=== PATIENT | female | born 1985 | race Caucasian/White ===

== ENCOUNTER 2018-12-24 02:53 | Inpatient (IN) | payer BC ==
[2018-12-24] MEDS ORDERED: Ondansetron 4 MG/2 ML SDV IVPUSH PRN (04:14)
[2018-12-24] MEDS ORDERED: Nalbuphine 20 MG/ML 1 ML Syringe IVPUSH PRN (04:14)
[2018-12-24] MEDS ORDERED: Sodium Chloride 0.9% 10 ML Syringe FLUSH PRN (04:14)
--- NOTE | 2018-12-24 04:24 | PCM.LDHP ---
L&D History of Present Illness - General Date of Service: 12/24/18 Admit Problem/Dx: Patient Status Order with Admit Dx/Problem 12/24/18 03:31 Patient Status [ADT] Routine Admission Diagnosis/Problem Admission Diagnosis/Problem - History of Present Illness Introduction:: 33 year old female at 39w6d by LMP consistent with 20 week ultrasound here in active labor. PNC has been with myself without complications and with regular visits starting at 12 weeks. Contractions started last evening and got much stronger about midnight. Upon arrival is 5 cm and has changed from 2 cm in clinic Tuesday. Improves with: Reports: None Worsens with: Reports: None Associated Symptoms: Reports: N - Related Data Allergies/Adverse Reactions: Allergies Allergy/AdvReac Type Severity Reaction Status Date / Time cephalexin Allergy Rash Verified 12/24/18 03:30 Past Medical History - Past Health History Medical/Surgical History: Denies Medical/Surgical History H&P Review of Systems - Review of Systems: Review Of Systems: See Below General: Reports: No Symptoms HEENT: Reports: No Symptoms Pulmonary: Reports: No Symptoms Cardiovascular: Reports: No Symptoms Gastrointestinal: Reports: No Symptoms Genitourinary: Reports: No Symptoms Musculoskeletal: Reports: No Symptoms Skin: Reports: No Symptoms Psychiatric: Reports: No Symptoms Neurological: Reports: No Symptoms Hematologic/Lymphatic: Reports: No Symptoms Immunologic: Reports: No Symptoms L&D Exam - Exam Exam: See Below - Vital Signs Weight: 75.75 kg - OB Specific Contraction Intensity: Moderate to Strong Movement: Active Heart Tones: Present Heart Rate (FHR) Variability: Moderate (6-25 bmp) Presentation: Vertex - Santos Score Santos Score Cervix Position: Anterior Santos Score Consistency: Soft Santos Score Effacement: >80% Santos Score Dilation: > 5 cm Santos Score 's Station: -2 Santos Score Total: 11 - Exam General: Alert, Oriented HEENT: PERRLA, Conjunctiva Clear, EACs Clear, EOMI, Hearing Intact, Mucosa Moist & [place], Nares Patent, Normal Nasal Septum, Posterior Pharynx Clear, TMs Clear Neck: Supple, Trachea Midline Lungs: Clear to Auscultation, Normal Respiratory Effort Cardiovascular: Regular Rate, Regular Rhythm GI/Abdominal Exam: Normal Bowel Sounds, Soft, Non-Tender, No Organomegaly, No Distention, No Abnormal Bruit, No Mass, Pelvis Stable Rectal Exam: Normal Exam, Normal Rectal Tone Genitourinary: Normal external exam, Normal bimanual exam, Normal speculum exam Back Exam: Normal Inspection, Full Range of Motion Extremities: Normal Inspection, Normal Range of Motion, Non-Tender, No Pedal Edema, Normal Capillary Refill Skin: Warm, Dry, Intact Neurological: Cranial Nerves Intact, Reflexes Equal Bilateral Psychiatric: Alert, Normal Affect, Normal Mood Problem List Initiated/Reviewed/Updated: Yes Orders Last 24hrs: Active Orders 24 hr Category Date Time Status Patient Status [ADT] Routine ADT 12/24/18 03:31 Active Activity as Tolerated [RC] PFP Care 12/24/18 04:15 Ordered Communication Order [RC] ASDIRECTED Care 12/24/18 04:15 Ordered Heart Tones [RC] ASDIRECTED Care 12/24/18 04:15 Ordered Non Stress Test [RC] PER UNIT ROUTINE Care 12/24/18 03:31 Active Non Stress Test [RC] PER UNIT ROUTINE Care 12/24/18 04:15 Ordered Notify Provider [RC] PFP Care 12/24/18 04:15 Ordered Notify Provider [RC] PRN Care 12/24/18 04:15 Ordered Peripheral IV Care [RC] . DIRECTED Care 12/24/18 04:15 Ordered Vaginal Exam [RC] PRN Care 12/24/18 03:31 Active Vital Signs [RC] PER UNIT ROUTINE Care 12/24/18 03:31 Active Vital Signs [RC] PER UNIT ROUTINE Care 12/24/18 04:15 Ordered Regular Diet [DIET] Diet 12/24/18 Breakfast Ordered CBC W/O DIFF,HEMOGRAM [HEME] Stat Lab 12/24/18 04:14 Ordered RAPID PLASMA REAGIN,RPR [CHEM] Routine Lab 12/24/18 04:15 Ordered TYPE AND SCREEN [BBK] Stat Lab 12/24/18 04:14 Ordered Lactated Ringers [Ringers, Lactated] 1,000 ml Med 12/24/18 04:15 Ordered IV ASDIRECTED Nalbuphine [Nubain] Med 12/24/18 04:14 Ordered 10 mg IVPUSH Q2H PRN Ondansetron [Zofran] Med 12/24/18 04:14 Ordered 4 mg IVPUSH Q4H PRN Oxytocin/Lactated Ringers [Pitocin in LR 10 Units/1,000 Med 12/24/18 04:15 Ordered ML] 10 unit in 1,000 ml IV .CONTINUOUS Sodium Chloride 0.9% [Saline Flush] Med 12/24/18 04:14 Ordered 10 ml FLUSH ASDIRECTED PRN Electronic Heart Tones Ext w TOCO [WOMSER] Oth 12/24/18 04:15 Ordered Routine Electronic Heart Tones Internal [WOMSER] Per Unit Ot 12/24/18 04:15 Ordered Routine Peripheral IV Insertion Adult [OM.PC] Routine Oth 12/24/18 04:15 Ordered Resuscitation Status Routine Resus Stat 12/24/18 03:30 Ordered Medication Orders Lactated Ringer's (Ringers, Lactated) 1,000 mls @ 100 mls/hr IV ASDIRECTED WILLIAM Oxytocin/Lactated Ringer's (Pitocin In Lr 10 Units/1,000 Ml) 10 unit in 1,000 mls @ 100 mls/hr IV .CONTINUOUS WILLIAM Nalbuphine HCl (Nubain) 10 mg IVPUSH Q2H PRN PRN Reason: pain Ondansetron HCl (Zofran) 4 mg IVPUSH Q4H PRN PRN Reason: Nausea/Vomiting Sodium Chloride (Saline Flush) 10 ml FLUSH ASDIRECTED PRN PRN Reason: Keep Vein Open Assessment/Plan Comment:: Term labor. AROM clear fluid. Desires epidural.
[2018-12-24] MEDS: Lactated Ringers 1,000 ML IV SCH ×5 (04:42→19:27)
[2018-12-24] MEDS ORDERED: fentaNYL 100 MCG/2 ML SDV EPIDUR PRN (07:02)
[2018-12-24] MEDS ORDERED: ePHEDrine 50 MG/ML SDV IVPUSH PRN (07:02)
[2018-12-24] MEDS ORDERED: diphenhydrAMINE 50 MG/ML SDV IVPUSH PRN (07:02)
[2018-12-24] MEDS ORDERED: fentaNYL/Bupivacaine-NS 2 MCG/ML-0.125%/PF 100 ML Bag EPIDUR SCH (07:15)
--- NOTE | 2018-12-24 07:41 | PCM.PREANE ---
Preanesthetic Assessment - Anesthesia/Transfusion/Family Hx Anesthesia History: No Prior Anesthesia Family History of Anesthesia Reaction: No Transfusion History: No Prior Transfusion(s) - Review of Systems General: No Symptoms Pulmonary: No Symptoms Cardiovascular: No Symptoms Gastrointestinal: Abdominal Pain Neurological: No Symptoms Other: Reports: None - Physical Assessment Pulse: 84 O2 Sat by Pulse Oximetry: 99 Respiratory Rate: 15 Blood Pressure: 117/62 Temperature: 36.3 C Vital Signs: Last Vital Signs Temp 37.2 C 12/24/18 04:15 Pulse 73 12/24/18 04:15 Resp 15 12/24/18 04:15 BP 135/79 12/24/18 04:15 Pulse Ox 99 12/24/18 04:15 Height: 1.68 m Weight: 75.75 kg ASA Class: 2 Mental Status: Alert & Oriented x3 Airway Class: Mallampati = 1 Dentition: Reports: Normal Dentition Thyro-Mental Finger Breadths: 3 Mouth Opening Finger Breadths: 3 ROM/Head Extension: Full Lungs: Clear to Auscultation, Normal Respiratory Effort Cardiovascular: Regular Rate, Regular Rhythm - Lab Values: Laboratory Last Values WBC 15.60 K/mm3 (3.98-10.04) H 12/24/18 04:25 RBC 4.47 M/mm3 (3.98-5.22) 12/24/18 04:25 Hgb 12.9 gm/L (11.2-15.7) 12/24/18 04:25 Hct 37.3 % (34.1-44.9) 12/24/18 04:25 MCV 83.4 fl (79.4-94.8) 12/24/18 04:25 MCH 28.9 pg (25.6-32.2) 12/24/18 04:25 MCHC 34.6 g/dl (32.2-35.5) 12/24/18 04:25 RDW Std Deviation 39.1 fL (36.4-46.3) 12/24/18 04:25 Plt Count 228 K/mm3 (182-369) 12/24/18 04:25 MPV 9.4 fl (9.4-12.3) 12/24/18 04:25 Blood Type O POSITIVE 12/24/18 04:25 Gel Antibody Screen Negative 12/24/18 04:25 - Allergies Allergies/Adverse Reactions: Allergies Allergy/AdvReac Type Severity Reaction Status Date / Time cephalexin Allergy Rash Verified 12/24/18 03:30 - Anesthesia Plan Pre-Op Medication Ordered: None - Acknowledgements Anesthesia Type Planned: Epidural Pt an Appropriate Candidate for the Planned Anesthesia: Yes Alternatives and Risks of Anesthesia Discussed w Pt/Guardian: Yes Pt/Guardian Understands and Agrees with Anesthesia Plan: Yes PreAnesthesia Questionnaire - Past Health History Medical/Surgical History: Denies Medical/Surgical History HEENT History: Reports: None 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: , Other (See Below) Other OB/BYN History: Abnormal PAP 2010 - Past Surgical History HEENT Surgical History: Reports: LASIK, Oral Surgery Other HEENT Surgeries/Procedures: [place] teeth removed age 15 - SUBSTANCE USE Smoking Status *Q: Never Smoker Second Hand Smoke Exposure: No Recreational Drug Use History: No - CURRENT (IN HOUSE) MEDS Current Meds: Current Medications Diphenhydramine HCl (Benadryl) 25 mg IVPUSH Q6H PRN PRN Reason: Itching Ephedrine Sulfate (Ephedrine Sulfate) 5 mg IVPUSH ASDIRECTED PRN PRN Reason: HYPOTENTSION Last Admin: 12/24/18 07:36 Dose: 5 mg Fentanyl (Sublimaze) 100 mcg EPIDUR Q3H PRN PRN Reason: Pain Last Admin: 12/24/18 07:29 Dose: 100 mcg Fentanyl/Bupivacaine HCl (Anuplqmf-Zmujm-Kg 2 Mcg/Ml-0.125%) 100 ml EPIDUR ASDIRECTED [facility] Last Admin: 12/24/18 07:29 Dose: 100 ml Lactated Ringer's (Ringers, Lactated) 1,000 mls @ 100 mls/hr IV ASDIRECTED [facility] Last Admin: 12/24/18 07:05 Dose: 999 mls/hr Oxytocin/Lactated Ringer's (Pitocin In Lr 10 Units/1,000 Ml) 10 unit in 1,000 mls @ 100 mls/hr IV .CONTINUOUS WILLIAM Nalbuphine HCl (Nubain) 10 mg IVPUSH Q2H PRN PRN Reason: pain Ondansetron HCl (Zofran) 4 mg IVPUSH Q4H PRN PRN Reason: Nausea/Vomiting Sodium Chloride (Saline Flush) 10 ml FLUSH ASDIRECTED PRN PRN Reason: Keep Vein Open
[2018-12-24] MEDS: Oxytocin/Lactated Ringers 10 UNIT/1,000 ML BAG IV SCH ×2 (09:19→19:39)
[2018-12-24] MEDS ORDERED: Oxytocin/Lactated Ringers 10 UNIT/1,000 ML BAG IV SCH (10:48)
[2018-12-24] MEDS ORDERED: ePHEDrine 50 MG/ML SDV ONE (14:00)
[2018-12-24] MEDS ORDERED: Lidocaine 1.5% with EPINEPHrine 1:200,000 5 ML Amp ONE (14:00)
[2018-12-24] MEDS ORDERED: Bupivacaine 0.25% 10 ML SDV ONE (14:00)
[2018-12-24] MEDS ORDERED: Methylergonovine 0.2 MG/1 ML Amp IM PRN (16:27)
--- NOTE | 2018-12-24 16:58 | PCM.SN ---
- Free Text/Narrative Note: Stage I - Patient presented in active labor. Epidural for anesthesia. Progressed nicely to complete with overall reassuring heart tones. Stage II - of viable female , APGARS 8/9 at 1602. Weight pending. Head delivered in controlled manner over intact perineum, body and shoulders followed atraumatically. Cord clamped and cut by FOB. Stage III - Placenta delivered spontaneous and intact. 3VC. Immediate hemorrhage with rapid loss of about 600mL. Bladder emptied with springer and methergine given in addition to pitocin. Bleeding slowed. Uterus then firm. EBL 1000. Small left labial laceration repaired with 4-0 vicryl
[2018-12-24] MEDS ORDERED: Ondansetron 4 MG/2 ML SDV ONE (19:17)
[2018-12-24] MEDS: Ibuprofen 600 MG Tab PO PRN (20:48)
[2018-12-25] MEDS: Ibuprofen 600 MG Tab PO PRN ×2 (02:28→19:37)
--- NOTE | 2018-12-25 07:42 | PCM.PNPP ---
- General Info Date of Service: 12/25/18 Functional Status: Reports: Pain Controlled (with exception of headache) - Review of Systems General: Reports: No Symptoms HEENT: Reports: Headaches Pulmonary: Reports: No Symptoms Cardiovascular: Reports: No Symptoms Gastrointestinal: Reports: No Symptoms Genitourinary: Reports: No Symptoms Musculoskeletal: Reports: No Symptoms Skin: Reports: No Symptoms Neurological: Reports: No Symptoms Psychiatric: Reports: No Symptoms - General Info Date of Service: 12/25/18 - Patient Data Vital Signs - Most Recent: Last Vital Signs Temp 36.8 C 12/24/18 23:57 Pulse 63 12/24/18 23:57 Resp 17 12/24/18 23:57 BP 113/68 12/24/18 23:57 Pulse Ox 98 12/24/18 23:57 Weight - Most Recent: 75.75 kg I&O - Last 24 Hours: Intake & Output 12/24/18 12/25/18 12/25/18 22:59 06:59 14:59 Intake Total 1999 1999 Balance 1999 1999 Med Orders - Current: Current Medications Ibuprofen (Motrin) 600 mg PO Q6H PRN PRN Reason: Pain Last Admin: 12/25/18 02:28 Dose: 600 mg Discontinued Medications Diphenhydramine HCl (Benadryl) 25 mg IVPUSH Q6H PRN PRN Reason: Itching Ephedrine Sulfate (Ephedrine Sulfate) 5 mg IVPUSH ASDIRECTED PRN PRN Reason: HYPOTENTSION Last Admin: 12/24/18 07:36 Dose: 5 mg Fentanyl (Sublimaze) 100 mcg EPIDUR Q3H PRN PRN Reason: Pain Last Admin: 12/24/18 07:29 Dose: 100 mcg Fentanyl/Bupivacaine HCl (Svqduahx-Rsmxw-Lb 2 Mcg/Ml-0.125%) 100 ml EPIDUR ASDIRECTED WILLIAM Last Admin: 12/24/18 07:29 Dose: 100 ml Lactated Ringer's (Ringers, Lactated) 1,000 mls @ 100 mls/hr IV ASDIRECTED WILLIAM Last Admin: 12/24/18 19:27 Dose: 125 mls/hr Oxytocin/Lactated Ringer's (Pitocin In Lr 10 Units/1,000 Ml) 10 unit in 1,000 mls @ 100 mls/hr IV .CONTINUOUS WILLIAM Last Admin: 12/24/18 19:39 Dose: 100 mls/hr Oxytocin 10 unit/ Lactated (Ringer's) 1,001 mls @ 12.01 mls/hr IV TITRATE WILLIAM; Protocol Oxytocin/Lactated Ringer's (Pitocin In Lr 10 Units/1,000 Ml) 10 unit in 1,000 mls @ 12 mls/hr IV TITRATE WILLIAM; Protocol Last Titration: 12/24/18 15:15 Dose: 10 munits/min, 60 mls/hr Methylergonovine Maleate (Methergine) 0.2 mg IM Q4H PRN PRN Reason: Bleeding Last Admin: 12/24/18 16:50 Dose: 0.2 mg Nalbuphine HCl (Nubain) 10 mg IVPUSH Q2H PRN PRN Reason: pain Ondansetron HCl (Zofran) 4 mg IVPUSH Q4H PRN PRN Reason: Nausea/Vomiting Ondansetron HCl (Zofran) Confirm Administered Dose 4 mg .ROUTE .10X10 Room-MED ONE Stop: 12/24/18 19:18 Last Admin: 12/24/18 19:25 Dose: 4 mg Sodium Chloride (Saline Flush) 10 ml FLUSH ASDIRECTED PRN PRN Reason: Keep Vein Open - Infant Interaction Infant Disposition, : at Bedside Support Person: Significant Other - Recovery Exam Fundal Tone: Firm Fundal Level: 1 Fingerbreadths Below Umbilicus Fundal Placement: Midline Lochia Amount: Small Lochia Color: Rubra/Red Perineum Description: Intact, Minimal Bruising/Swelling Bladder Status: Voiding Urinary Elimination: Voided - Exam General: Alert, Oriented HEENT: Pupils Equal Neck: Supple Lungs: Clear to Auscultation, Normal Respiratory Effort Cardiovascular: Regular Rate, Regular Rhythm GI/Abdominal Exam: Normal Bowel Sounds, Soft, Non-Tender, No Organomegaly, No Distention, No Abnormal Bruit, No Mass, Pelvis Stable Extremities: Normal Inspection, Normal Range of Motion, Non-Tender, No Pedal Edema, Normal Capillary Refill Skin: Warm, Dry, Intact Wound/Incisions: Healing Well Neurological: No New Focal Deficit Psy/Mental Status: Alert, Normal Affect, Normal Mood - Problem List Review Problem List Initiated/Reviewed/Updated: Yes - My Orders Last 24 Hours: My Active Orders 12/24/18 17:57 Activity as Tolerated [RC] PER UNIT ROUTINE Vital Signs [RC] 03,09,15,21 Assess Lochia [WOMSER] Per Unit Routine Assess Uterine Involution [WOMSER] Per Unit Routine Breast Pump [WOMSER] Per Unit Routine Heat Therapy [OM.PC] PRN Medication Administration Instruction [OM.PC] Routine Perineal Care [OM.PC] Per Unit Routine Sitz Bath [OM.PC] Per Unit Routine 12/24/18 19:56 Ibuprofen [Motrin] 600 mg PO Q6H PRN 12/25/18 17:57 Heat Therapy [OM.PC] PRN 12/25/18 Breakfast Regular Diet [DIET] - Plan Plan:: PPD1. Doing great. Headache seems positional. Anesthesia will see this am. Otherwise doing great from standpoint
[2018-12-25] MEDS ORDERED: Witch Hazel Medicated Pads 40/Jar TOP PRN (08:51)
[2018-12-25] MEDS ORDERED: Benzocaine/Menthol 20%-0.5% Spray 56 GM Canister TOP PRN (08:51)
[2018-12-25] MEDS ORDERED: Lanolin 100% Cream 7 GM Tube TOP PRN (08:52)
[2018-12-25] MEDS: Acetaminophen 325 MG Tab PO PRN (09:00)
--- NOTE | 2018-12-25 15:58 | PCM48HPAN ---
Post Anesthesia Note - EVALUATION WITHIN 48HRS OF ANESTHETIC Vital Signs in Normal Range: Yes Patient Participated in Evaluation: Yes Respiratory Function Stable: Yes Airway Patent: Yes Cardiovascular Function Stable: Yes Hydration Status Stable: Yes Pain Control Satisfactory: Yes Nausea and Vomiting Control Satisfactory: Yes Mental Status Recovered: Yes Pulse Rate: 62 Resp Rate: 15 Temperature: 36.7 C Blood Pressure: 104/79 - COMMENTS/OBSERVATIONS Free Text/Narrative:: Patient currently not experiencing any pain or headaches. Earlier this morning patient c/o headaches to RN, especially when sitting up. Patient describes pain as fullness. After increasing fluids, drinking caffeine and talking OTC pain medication this pain has ceased. Some bruised feeling in her back, which was described as normal. Instructed to inform RN if headache returns.
[2018-12-25] MEDS: Docusate Sodium 100 MG Cap PO PRN (19:39)
[2018-12-26] MEDS: Ibuprofen 600 MG Tab PO PRN (02:59)
[2018-12-26] MEDS: Acetaminophen 325 MG Tab PO PRN ×2 (03:02→10:14)
[2018-12-26] MEDS ORDERED: Ketorolac 30 MG/ML SDV IVPUSH ONE (03:30)
[2018-12-26] MEDS ORDERED: Lactated Ringers 1,000 ML IV ONE (03:31)
[2018-12-26] MEDS ORDERED: Ketorolac 15 MG/ML SDV IVPUSH ONE (04:30)
--- NOTE | 2018-12-26 06:43 | PCM.DCSUM1 ---
Discharge Summary - Hospital Course Diagnosis: Stroke: No - Discharge Data Discharge Date: 12/26/18 Discharge Disposition: Home, Self-Care 01 Condition: Good - Patient Summary/Data Hospital Course: Admitted in labor. Had unremarkable labor. hemorrhage. Stable after. - Patient Instructions Diet: Usual Diet as Tolerated Activity: No Strenuous Activities Activity, Other: pelvic rest Driving: May Drive Today Showering/Bathing: May Shower (or bathe) Notify Provider of: Fever, Increased Pain, Swelling and Redness, Drainage, Nausea and/or Vomiting - Discharge Plan *PRESCRIPTION DRUG MONITORING PROGRAM REVIEWED*: No *COPY OF PRESCRIPTION DRUG MONITORING REPORT IN PATIENT MARCIAL: No Home Medications: Home Meds Prenat Vit Comb.10/Iron/Fa/Dha [Vitafol-OB + DHA] 1 each PO DAILY 12/25/18 [ History] Referrals: Mariela Gottlieb MD [Primary Care Provider] - (2-6 weeks) - Discharge Summary/Plan Comment DC Time >30 min.: No - General Info Date of Service: 12/26/18 Functional Status: Reports: Pain Controlled - Review of Systems General: Reports: No Symptoms HEENT: Reports: Headaches Pulmonary: Reports: No Symptoms Cardiovascular: Reports: No Symptoms Gastrointestinal: Reports: No Symptoms Genitourinary: Reports: No Symptoms Musculoskeletal: Reports: No Symptoms Skin: Reports: No Symptoms Neurological: Reports: No Symptoms Psychiatric: Reports: No Symptoms - Patient Data Vitals - Most Recent: Last Vital Signs Temp 36.8 C 12/26/18 03:10 Pulse 56 L 12/26/18 03:10 Resp 16 12/25/18 19:58 BP 150/82 H 12/26/18 03:10 Pulse Ox 100 12/26/18 03:10 Weight - Most Recent: 75.75 kg I&O - Last 24 hours: Intake & Output 12/25/18 12/25/18 12/26/18 14:59 22:59 06:59 Intake Total 0 Balance 0 Lab Results - Last 24 hrs: Laboratory Results - last 24 hr 12/24/18 Range/Units 04:25 RPR Non-reactive (NONREACTIVE) Med Orders - Current: Current Medications Acetaminophen (Tylenol) 650 mg PO Q6H PRN PRN Reason: Pain Last Admin: 12/26/18 03:02 Dose: 650 mg Benzocaine/Menthol (Dermoplast Pain Relief [place]) 1 gm TOP ASDIRECTED PRN PRN Reason: Pain Last Admin: 12/25/18 20:15 Dose: 1 canister Docusate Sodium (Colace) 100 mg PO BID PRN PRN Reason: Constipation Last Admin: 12/25/18 19:39 Dose: 100 mg Emollient Ointment (Lansinoh Hpa) 1 gm TOP ASDIRECTED PRN PRN Reason: Pain Ibuprofen (Motrin) 600 mg PO Q6H PRN PRN Reason: Pain Witch Tari (Tucks) 1 pad TOP ASDIRECTED PRN PRN Reason: Pain Discontinued Medications Bupivacaine HCl (Sensorcaine-Mpf 0.25%) 10 ml .ROUTE .STK-MED ONE Stop: 12/24/18 14:01 Diphenhydramine HCl (Benadryl) 25 mg IVPUSH Q6H PRN PRN Reason: Itching Ephedrine Sulfate (Ephedrine Sulfate) 5 mg IVPUSH ASDIRECTED PRN PRN Reason: HYPOTENTSION Last Admin: 12/24/18 07:36 Dose: 5 mg Ephedrine Sulfate (Ephedrine Sulfate) 50 mg .ROUTE .STK-MED ONE Stop: 12/24/18 14:01 Fentanyl (Sublimaze) 100 mcg EPIDUR Q3H PRN PRN Reason: Pain Last Admin: 12/24/18 07:29 Dose: 100 mcg Fentanyl/Bupivacaine HCl (Vohqdddi-Xgsil-Gs 2 Mcg/Ml-0.125%) 100 ml EPIDUR ASDIRECTED WILLIAM Last Admin: 12/24/18 07:29 Dose: 100 ml Lactated Ringer's (Ringers, Lactated) 1,000 mls @ 100 mls/hr IV ASDIRECTED WILLIAM Last Admin: 12/24/18 19:27 Dose: 125 mls/hr Oxytocin/Lactated Ringer's (Pitocin In Lr 10 Units/1,000 Ml) 10 unit in 1,000 mls @ 100 mls/hr IV .CONTINUOUS WILLIAM Last Admin: 12/24/18 19:39 Dose: 100 mls/hr Oxytocin 10 unit/ Lactated (Ringer's) 1,001 mls @ 12.01 mls/hr IV TITRATE WILLIAM; Protocol Oxytocin/Lactated Ringer's (Pitocin In Lr 10 Units/1,000 Ml) 10 unit in 1,000 mls @ 12 mls/hr IV TITRATE WILLIAM; Protocol Last Titration: 12/24/18 15:15 Dose: 10 munits/min, 60 mls/hr Lactated Ringer's (Ringers, Lactated) 1,000 mls @ 999 mls/hr IV ONETIME ONE Stop: 12/26/18 04:31 Last Admin: 12/26/18 03:50 Dose: 999 mls/hr Ibuprofen (Motrin) 600 mg PO Q6H PRN PRN Reason: Pain Last Admin: 12/26/18 02:59 Dose: 600 mg Ketorolac Tromethamine (Toradol) 30 mg IVPUSH ONETIME ONE Stop: 12/26/18 03:31 Ketorolac Tromethamine (Toradol) 15 mg IVPUSH ONETIME ONE Stop: 12/26/18 04:31 Last Admin: 12/26/18 05:11 Dose: 15 mg Lidocaine/Epinephrine (Xylocaine-Mpf 1.5% W/Epinephrine 1:200,000) 5 ml .ROUTE .STK-MED ONE Stop: 12/24/18 14:01 Methylergonovine Maleate (Methergine) 0.2 mg IM Q4H PRN PRN Reason: Bleeding Last Admin: 12/24/18 16:50 Dose: 0.2 mg Nalbuphine HCl (Nubain) 10 mg IVPUSH Q2H PRN PRN Reason: pain Ondansetron HCl (Zofran) 4 mg IVPUSH Q4H PRN PRN Reason: Nausea/Vomiting Ondansetron HCl (Zofran) Confirm Administered Dose 4 mg .ROUTE .STK-MED ONE Stop: 12/24/18 19:18 Last Admin: 12/24/18 19:25 Dose: 4 mg Sodium Chloride (Saline Flush) 10 ml FLUSH ASDIRECTED PRN PRN Reason: Keep Vein Open - Exam General: Reports: Alert, Oriented HEENT: Reports: Pupils Equal, Pupils Reactive, EOMI, Mucous Membr. Moist/[place] Neck: Reports: Supple Lungs: Reports: Clear to Auscultation, Normal Respiratory Effort Cardiovascular: Reports: Regular Rate, Regular Rhythm GI/Abdominal Exam: Normal Bowel Sounds, Soft, Non-Tender, No Organomegaly, No Distention, No Abnormal Bruit, No Mass, Pelvis Stable (Female) Exam: Normal External Exam, Normal Speculum Exam, Normal Bimanual Exam Rectal (Female) Exam: Normal Exam, Normal Rectal Tone Back Exam: Reports: Normal Inspection, Full Range of Motion Extremities: Normal Inspection, Normal Range of Motion, Non-Tender, No Pedal Edema, Normal Capillary Refill Skin: Reports: Warm, Dry, Intact Wound/Incisions: Reports: Healing Well Neurological: Reports: No New Focal Deficit Psy/Mental Status: Reports: Alert, Normal Affect, Normal Mood
--- NOTE | 2018-12-26 08:35 | PCM.SN ---
- Free Text/Narrative Note: Anesthesia Headache Evaluation: Patient continues to have pressure in the occipital lobes that increases with sitting up. Patient rates pain supine= 3-4, sitting up= #7. Risk and benefits discussed on blood patch therapy. Patient and agree to continue to assess till this afternoon and then make a definitive decision. Thank you, Karin Escalante CRNA
[2018-12-26] MEDS: Docusate Sodium 100 MG Cap PO PRN (10:13)
[2018-12-26] MEDS ORDERED: Ibuprofen 600 MG Tab PO PRN (10:30)
--- NOTE | 2018-12-26 11:35 | PCM.SN ---
- Free Text/Narrative Note: Anesthesia consulted again regarding blood patch for potential post dural puncture headache. Patient at this time declines and wishes to go home and continue hydration and caffeinated beverages. Patient instructed to return to hospital in the event headache symptoms do not resolve but continue to increase in intensity and discomfort.
== END 2018-12-26 16:50 | disposition home or self-care (01) | DRG 560 ==
LOC: JD.OBCHECK 02:53 → JD.OB 03:01 → JD.OBCHECK 08:40 → JD.OB 08:40 → OBSVTOIN 16:02 → JD.OB 16:03
PROVIDERS: ADMIT Obstetrics & Gynecology; ATTEND Obstetrics & Gynecology
PROC: 10E0XZZ Delivery of Products of Conception, External Approach (ICD-10-PCS; principal; 2018-12-24)
PROC: 10907ZC Drainage of Amniotic Fluid, Therapeutic from Products of Conception, Via Natural or Artificial Opening (ICD-10-PCS; principal; 2018-12-24)
PROC: 0UQMXZZ Repair Vulva, External Approach (ICD-10-PCS; principal; 2018-12-24)
PROC: 00HU33Z Insertion of Infusion Device into Spinal Canal, Percutaneous Approach (ICD-10-PCS; 2018-12-24)
PROC: 3E0R3BZ Introduction of Anesthetic Agent into Spinal Canal, Percutaneous Approach (ICD-10-PCS; 2018-12-24)
DX: O70.0 First degree perineal laceration during delivery (principal); O72.1 Other immediate postpartum hemorrhage; O89.4 Spinal and epidural anesthesia-induced headache during the puerperium; Z3A.39 39 weeks gestation of pregnancy; Z37.0 Single live birth; Z88.1 Allergy status to other antibiotic agents
CPT/HCPCS: 01967; 36415; 51702; 59025; 59409; 85025; 85027; 86592; 86850; 86900; 86901; A9270-GY; J1885; J2210; J2405; J2590; J3010; J3490; J7120

== ENCOUNTER 2018-12-28 11:27 | Emergency (ER) | payer BC ==
[2018-12-28] MEDS ORDERED: Lactated Ringers 1,000 ML IV ONE ×2 (12:00→12:34)
[2018-12-28] MEDS ORDERED: Sodium Chloride 0.9% 10 ML Syringe FLUSH PRN (12:00)
--- NOTE | 2018-12-28 12:08 | EDM.PDOC ---
ED HPI GENERAL MEDICAL PROBLEM - General Chief Complaint: Headache Stated Complaint: HEADACHE FROM EPIDURAL Time Seen by Provider: 12/28/18 11:42 Source of Information: Reports: Patient, RN Notes Reviewed History Limitations: Reports: No Limitations - History of Present Illness INITIAL COMMENTS - FREE TEXT/NARRATIVE: Patient is a 33-year-old female who presents to the ED today for the evaluation of a headache. The patient states that she had a normal vaginal delivery at this facility last 12/23/18, and received an epidural at this time. The epidural was performed by Ciaran Platt CRNA. The patient states that after her delivery she felt nausea some lightheadedness and a headache. They did give her Zofran and that helped with the nausea. She states that Tuesday the headache did go away for most of the day so she went about her normal activities on Tuesday and states that Tuesday night she had a headache again. Tuesday before discharge she was offered a blood patch or conservative management for the next few days and she chose the latter option. She states that she has been using the 500 mg Tylenol/600 mg Motrin every 6 hours, caffeine , fluids, laying flat and none of this provides much relief. She presents to the ED for the possibility of a blood patch at this time. 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: , Other (See Below) Other SECOND FACING BASTER History: Abnormal PAP 2010 - Infectious Disease History Infectious Disease History: Reports: Chicken Pox - Past Surgical History HEENT Surgical History: Reports: LASIK, Oral Surgery Other HEENT Surgeries/Procedures: [place] teeth removed age 15 Social & Family History - Family History Family Medical History: Noncontributory - Tobacco Use Smoking Status *Q: Never Smoker - Caffeine Use Caffeine Use: Reports: Soda - Recreational Drug Use Recreational Drug Use: No ED ROS GENERAL - Review of Systems Review Of Systems: See Below Constitutional: Reports: No Symptoms HEENT: Reports: No Symptoms Respiratory: Reports: No Symptoms Cardiovascular: Reports: No Symptoms Endocrine: Reports: No Symptoms GI/Abdominal: Reports: No Symptoms : Reports: No Symptoms Musculoskeletal: Reports: No Symptoms Skin: Reports: No Symptoms Neurological: Reports: No Symptoms, Headache (Post-epidural headache) Psychiatric: Reports: No Symptoms Hematologic/Lymphatic: Reports: No Symptoms Immunologic: Reports: No Symptoms - Physical Exam Exam: See Below Exam Limited By: No Limitations General Appearance: Alert, WD/WN, No Apparent Distress (Patient is lying flat on the ED cot at this time) Eye Exam: Bilateral Eye: EOMI, Normal Inspection, PERRL Ears: Normal External Exam Nose: Normal Inspection Throat/Mouth: Normal Inspection, Normal Lips, Normal Teeth, Normal Gums, Normal Oropharynx, Normal Voice, No Airway Compromise Head Exam: Atraumatic, Normocephalic Neck: Normal Inspection Respiratory/Chest: No Respiratory Distress, Lungs Clear, Normal Breath Sounds, No Accessory Muscle Use, Chest Non-Tender Cardiovascular: Normal Peripheral Pulses, Regular Rate, Rhythm, No Murmur GI/Abdominal: Normal Bowel Sounds, Soft, Non-Tender, No Distention, No Mass Neuro Exam (Abbreviated): Alert, Oriented, Normal Cognition, Normal Gait, No Motor/Sensory Deficits Extremities: Normal Inspection, Normal Capillary Refill Psychiatric: Normal Affect, Normal Mood Skin Exam: Warm, Dry, Intact Course - Vital Signs Last Recorded V/S: Last Vital Signs Temp 97.9 F 12/28/18 12:20 Pulse 66 12/28/18 12:20 Resp 20 12/28/18 12:20 BP 143/94 H 12/28/18 12:20 Pulse Ox 100 12/28/18 12:20 - Orders/Labs/Meds Orders: Active Orders 24 hr Category Date Time Status Notify Provider Consults [RC] ASDIRECTED Care 12/28/18 12:01 Active Peripheral IV Care [RC] . DIRECTED Care 12/28/18 12:00 Active Consult to Physician [CONS] Stat Cons 12/28/18 12:01 Active Peripheral IV Insertion Adult [OM.PC] Routine Oth 12/28/18 12:00 Ordered Meds: Medications Discontinued Medications Generic Name Dose Route Start Last Admin Trade Name Freq PRN Reason Stop Dose Admin Lactated Ringer's 1,000 mls @ 150 mls/hr 12/28/18 12:00 12/28/18 12:35 Ringers, Lactated IV 12/28/18 18:39 999 mls/hr ASDIRECTED ONE Infusion Lactated Ringer's 1,000 mls @ 999 mls/hr 12/28/18 12:34 12/28/18 13:05 Ringers, Lactated IV 12/28/18 13:34 Not Given .BOLUS ONE Sodium Chloride 10 ml 12/28/18 12:00 12/28/18 12:22 Saline Flush FLUSH 10 ml ASDIRECTED PRN Administration Keep Vein Open - Re-Assessments/Exams Free Text/Narrative Re-Assessment/Exam: 12/28/18 12:07 Patient presents to the ED for a post-epidural headache. She has been trying conservative measures, I did call Ciaran Craig CRNA to see if he suggested she try further conservative management at the ED or if he would be willing to do a blood patch at this time. He states that she has been trying the conservative measures and that he feels comfortable doing a blood patch at this time, he requested that an IV be placed with LR to be started for fluids. 12/28/18 13:43 Patient was re-assessed at bedside and she states that she feels better, the RN tells me that she is to lay flat until at least 2:50 PM today. Will let her relax for one more hour and reassess discharge. The patient was notified to let us know if she needs anything for food water or otherwise. Departure - Departure Time of Disposition: 15:12 Disposition: Home, Self-Care 01 Condition: Fair Clinical Impression: Headache after spinal puncture - Discharge Information *PRESCRIPTION DRUG MONITORING PROGRAM REVIEWED*: No *COPY OF PRESCRIPTION DRUG MONITORING REPORT IN PATIENT MARCIAL: No Instructions: Epidural Blood Patch for Spinal Headache Referrals: Mariela Gottlieb MD [Primary Care Provider] - Forms: ED Department Discharge Additional Instructions: You have been evaluated in the ED today for your headache after your epidural on Tuesday. Our WASTE WATER [employer] WATER PLANT OPERATOR air conditioning engineer did perform a blood patch on you this should provide you further relief from the headache. Recommend that you follow our WASTE WATER OR WATER PLANT OPERATOR's recommendations for recovery from headache. Please return to the ED if your symptoms change or worsen - My Orders Last 24 Hours: My Active Orders 12/28/18 12:00 Peripheral IV Care [RC] . DIRECTED Peripheral IV Insertion Adult [OM.PC] Routine 12/28/18 12:01 Notify Provider Consults [RC] ASDIRECTED Consult to Physician [CONS] Stat - Assessment/Plan Last 24 Hours: My Active Orders 12/28/18 12:00 Peripheral IV Care [RC] . DIRECTED Peripheral IV Insertion Adult [OM.PC] Routine 12/28/18 12:01 Notify Provider Consults [RC] ASDIRECTED Consult to Physician [CONS] Stat
--- NOTE | 2018-12-28 12:20 | PCM.PREANE ---
Preanesthetic Assessment - Anesthesia/Transfusion/Family Hx Anesthesia History: Prior Anesthesia Without Reaction Family History of Anesthesia Reaction: No Transfusion History: No Prior Transfusion(s) - Review of Systems General: No Symptoms Pulmonary: No Symptoms Cardiovascular: No Symptoms Gastrointestinal: No Symptoms Neurological: Headache (with neck pressure) - Physical Assessment Pulse: 66 O2 Sat by Pulse Oximetry: 100 Respiratory Rate: 20 Blood Pressure: 143/94 Temperature: 36.6 C Vital Signs: Last Vital Signs Temp 36.6 C 12/28/18 11:32 Pulse 66 12/28/18 11:32 Resp 20 12/28/18 11:32 BP 143/94 H 12/28/18 11:32 Pulse Ox 100 12/28/18 11:32 Height: 1.68 m Weight: 63.503 kg ASA Class: 2 Mental Status: Alert & Oriented x3 Airway Class: Mallampati = 1 Dentition: Reports: Normal Dentition Thyro-Mental Finger Breadths: 3 Mouth Opening Finger Breadths: 3 ROM/Head Extension: Full Lungs: Clear to Auscultation, Normal Respiratory Effort Cardiovascular: Regular Rate, Regular Rhythm - Allergies Allergies/Adverse Reactions: Allergies Allergy/AdvReac Type Severity Reaction Status Date / Time cephalexin Allergy Rash Verified 12/28/18 11:36 - Blood Blood Available: No Product(s) Available: None - Anesthesia Plan Pre-Op Medication Ordered: None - Acknowledgements Anesthesia Type Planned: Epidural (epidural blood patch for epidural headache) Pt an Appropriate Candidate for the Planned Anesthesia: Yes Alternatives and Risks of Anesthesia Discussed w Pt/Guardian: Yes Pt/Guardian Understands and Agrees with Anesthesia Plan: Yes PreAnesthesia Questionnaire - Past Health History Medical/Surgical History: Denies Medical/Surgical History HEENT History: Reports: None Genitourinary History: Reports: Urinary Incontinence, Other (See Below) Other Genitourinary History: since delivery [employer] INSTRUCTOR History: Reports: , Other (See Below) Other OB/BYN History: Abnormal PAP 2010 - Infectious Disease History Infectious Disease History: Reports: Chicken Pox - Past Surgical History HEENT Surgical History: Reports: LASIK, Oral Surgery Other HEENT Surgeries/Procedures: [place] teeth removed age 15 - SUBSTANCE USE Smoking Status *Q: Never Smoker Recreational Drug Use History: No - HOME MEDS Home Medications: Home Meds Prenat Vit Comb.10/Iron/Fa/Dha [Vitafol-OB + DHA] 1 each PO DAILY 12/25/18 [ History] - CURRENT (IN HOUSE) MEDS Current Meds: Current Medications Lactated Ringer's (Ringers, Lactated) 1,000 mls @ 150 mls/hr IV ASDIRECTED ONE Stop: 12/28/18 18:39 Sodium Chloride (Saline Flush) 10 ml FLUSH ASDIRECTED PRN PRN Reason: Keep Vein Open
--- NOTE | 2018-12-28 12:59 | PCM.SN ---
- Free Text/Narrative Note: [id number] called to ER room 9 pt diagnosed Epidural Headache consent given for epidural blood patch pt up to side of bed leaning over side table epidural space obtained with sterile technique gown, gloves, and mask 20ml patient's own blood obtained per lab left anticubital blood injected at L3-4 band aid placed at site patient supine with fluids running orders given to RN education to patient VSS out of room at [id number]
== END 2018-12-28 15:20 | disposition home or self-care (01) ==
LOC: JD.ED 11:27
DX: O99.89 Other specified diseases and conditions complicating pregnancy, childbirth and the puerperium (principal); G97.1 Other reaction to spinal and lumbar puncture; Z88.8 Allergy status to other drugs, medicaments and biological substances; Y84.4 Aspiration of fluid as the cause of abnormal reaction of the patient, or of later complication, without mention of misadventure at the time of the procedure
CPT/HCPCS: 62273; 96360; 99284; J7120

== ENCOUNTER 2021-05-06 02:42 | Inpatient (IN) | payer BC ==
[2021-05-06] MEDS ORDERED: Nalbuphine 10 MG/1 ML Vial IVPUSH PRN (03:00)
[2021-05-06] MEDS ORDERED: Oxytocin/Lactated Ringers 10 UNIT/1,000 ML BAG IV SCH ×2 (03:00→06:14)
[2021-05-06] MEDS ORDERED: Sodium Chloride 0.9% 10 ML Syringe FLUSH PRN (03:00)
[2021-05-06] MEDS ORDERED: Ondansetron 4 MG/2 ML SDV IVPUSH PRN (03:00)
[2021-05-06] MEDS: Lactated Ringers 1,000 ML IV SCH ×2 (03:13→04:23)
[2021-05-06] MEDS ORDERED: Lidocaine 1% 50 ML MDV ONE (04:57)
--- NOTE | 2021-05-06 05:46 | PCM.LDHP ---
L&D History of Present Illness - General Date of Service: 05/06/21 Admit Problem/Dx: Patient Status Order with Admit Dx/Problem 05/06/21 02:50 Patient Status [ADT] Routine 05/06/21 03:00 Patient Status [ADT] Routine Admission Diagnosis/Problem Admission Diagnosis/Problem Vaginal delivery Source of Information: Patient History Limitations: Reports: No Limitations - History of Present Illness Introduction:: Sarika Moore is a 35-year-old -0-0-1 female at 40 weeks 2 days (DAVID 05/04/2021) by LMP consistent with 14-week ultrasound who presented for labor with contractions that were getting more frequent and painful throughout the evening. She stated that she started to have contractions in the evening of 05/05/2021 that were about 5 to 10 minutes apart and were getting more painful throughout the evening. They became closer together to about every 2 to 4 minutes and were extremely painful per the patient's report. She denied having any leaking of fluid or vaginal bleeding. She had good movement Timing/Duration: Reports: gradual onset, intermittent (Contractions every 2 to 4-minute), getting worse (For more painful contractions throughout the evening) Location, : Reports: Pelvic Quality: Reports: Pressure Severity: Severe Pain Score: 10 Improves with: Reports: None Worsens with: Reports: None Associated Symptoms: Denies: vaginal bleeding, vaginal discharge, vaginal fluid Present Illness Comments:: Sarika Moore is a 35-year-old -0-0-1 female at 40 weeks 2 days (DAVID 8) by LMP consistent with a 14-week ultrasound who presents with active labor. She has had routine care with Dr. Gottlieb starting at 14 weeks gestational age. She denies any complications during the . She received Tdap vaccine on 02/13/2021. She denies any other significant complications during . 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 -0-0-1 G1: 12/24/2018, 39 weeks 6 days, , female , 7 pounds 1 ounce, epidural for anesthesia, no complications G2: Current labs Blood type: O+ Antibody screen: Negative First trimester hematocrit/hemoglobin: 35.7%/12.7 on 11/07/2020 Platelets: 198 on 11/07/2020 Rubella status: Immune Hepatitis B surface antigen: Negative RPR: Negative HIV: Negative Gonorrhea: Negative Chlamydia: Negative One hour glucose tolerance test: 98 Second trimester hematocrit/hemoglobin: 35.3%/12.2 on 01/16/2021 Platelets: 186 on 01/17/2020 GBS status: Negative - Related Data Allergies/Adverse Reactions: Allergies Allergy/AdvReac Type Severity Reaction Status Date / Time cephalexin Allergy Rash Verified 05/06/21 02:50 Home Medications: Home Meds Vit 10/Iron/Folic/Dha [Vitafol-OB + DHA] 1 each PO DAILY 12/25/18 [History] Past Medical History - Past Health History Medical/Surgical History: Denies Medical/Surgical History HEENT History: Reports: None Genitourinary History: Reports: Urinary Incontinence, Other (See Below) Other Genitourinary History: since delivery VISITOR SERVICES ASSISTANT History: Reports: , Other (See Below) : 2 Para: 1 Other OB/BYN History: Abnormal PAP 2010 - Infectious Disease History Infectious Disease History: Reports: Chicken Pox - Past Surgical History HEENT Surgical History: Reports: LASIK, Oral Surgery Other HEENT Surgeries/Procedures: [place] teeth removed age 15 Social & Family History - Family History Family Medical History: No Pertinent Family History - Tobacco Use Tobacco Use Status *Q: Never Tobacco User - Tobacco Core Measures Tobacco Use/Smoking Within Last 30 Days: No Smokeless Tobacco Use in Last 30 Days: No - Caffeine Use Caffeine Use: Reports: None - Alcohol Use Alcohol Use History: No - Recreational Drug Use Recreational Drug Use: No - Living Situation & Occupation Living situation: Reports: , with Family H&P Review of Systems - Review of Systems: Review Of Systems: See Below General: Denies: Fever, Chills, Malaise, Weakness, Fatigue HEENT: Denies: Contact Lenses, Glasses, Headaches, Rhinitis, Post Nasal Drip, Sinus Congestion, Sore Throat Pulmonary: Denies: Shortness of Breath, Wheezing, Pleuritic Chest Pain Cardiovascular: Denies: Chest Pain, Palpitations, Dyspnea on Exertion Gastrointestinal: Denies: Abdominal Pain, Constipation, Diarrhea, Nausea, Vomiting Genitourinary: Denies: Dysuria, Frequency, Burning, Pain, Urgency Musculoskeletal: Reports: Back Pain (and hip pain of ) Skin: Denies: Rash, Lesions Psychiatric: Denies: Depression, Anxiety L&D Exam - Exam Exam: See Below - Vital Signs Vital Signs: Last Vital Signs Temp 36.9 C 05/06/21 02:50 Pulse 69 05/06/21 02:50 Resp 16 05/06/21 02:50 BP 126/75 05/06/21 02:50 Pulse Ox 99 05/06/21 02:50 Weight: 73.346 kg - OB Specific Contraction Duration (sec): 60-75 Contraction Frequency (min): 2-3 Contraction Intensity: Strong Movement: Active Heart Tones: Present Heart Tones per Min: 120 (+15 x 15 accelerations, no decelerations) Heart Rate (FHR) Variability: Moderate (6-25 bpm) Presentation: Vertex - Santos Score Santos Score Cervix Position: Anterior Santos Score Consistency: Soft Santos Score Effacement: >80% (100%) Santos Score Dilation: > 5 cm (10 cm) Santos Score Infant's Station: +1, +2 (+2) Santos Score Total: 13 - Exam General: Alert, Oriented HEENT: Conjunctiva Clear, EOMI Neck: Supple, Trachea Midline Lungs: Normal Respiratory Effort Cardiovascular: Regular Rate GI/Abdominal Exam: Soft, Non-Tender, No Distention, Other (Gravid abdomen). No: Guarding, Rigid, Rebound Genitourinary: Normal external exam Extremities: Normal Inspection, No Pedal Edema Skin: Warm, Dry, Intact Psychiatric: Alert, Normal Affect, Normal Mood - Patient Data Lab Results Last 24 hrs: Laboratory Results - last 24 hr 05/06/21 05/06/21 Range/Units 03:00 03:00 WBC 16.77 H (3.98-10.04) K/mm3 RBC 4.63 (3.98-5.22) M/mm3 Hgb 13.5 D (11.2-15.7) gm/dl Hct 40.0 (34.1-44.9) % MCV 86.4 (79.4-94.8) fl MCH 29.2 (25.6-32.2) pg MCHC 33.8 (32.2-35.5) g/dl RDW Std Deviation 40.7 (36.4-46.3) fL Plt Count 288 D (182-369) K/mm3 MPV 9.2 L (9.4-12.3) fl Neut % (Auto) 74.6 H (34.0-71.1) % Lymph % (Auto) 19.0 L (19.3-51.7) % Tillman % (Auto) 5.3 (4.7-12.5) % Eos % (Auto) 0.4 L (0.7-5.8) Baso % (Auto) 0.2 (0.1-1.2) % Neut # (Auto) 12.52 H (1.56-6.13) K/mm3 Lymph # (Auto) 3.19 (1.18-3.74) K/mm3 Tillman # (Auto) 0.89 H (0.24-0.36) K/mm3 Eos # (Auto) 0.06 (0.04-0.36) K/mm3 Baso # (Auto) 0.03 (0.01-0.08) K/mm3 SARS-CoV-2 RNA (ALICIA) Negative (NEGATIVE) Result Diagrams: 05/06/21 03:00 - Problem List (1) 40 weeks gestation of SNOMED Code(s): 39714151 ICD Code: Z3A.40 - 40 WEEKS GESTATION OF Status: Acute Current Visit: Yes Problem List Initiated/Reviewed/Updated: Yes Orders Last 24hrs: Active Orders 24 hr Category Date Time Status Patient Status Manage Transfer [TRANSFER] Routine ADT 05/06/21 05:33 Ordered Patient Status [ADT] Routine ADT 05/06/21 02:50 Active Patient Status [ADT] Routine ADT 05/06/21 03:00 Active Activity as Tolerated [RC] PFP Care 05/06/21 03:00 Active Communication Order [RC] ASDIRECTED Care 05/06/21 03:00 Active Heart Tones [RC] ASDIRECTED Care 05/06/21 03:00 Active Non Stress Test [RC] PER UNIT ROUTINE Care 05/06/21 02:50 Active Non Stress Test [RC] PER UNIT ROUTINE Care 05/06/21 03:00 Active Notify Provider [RC] PFP Care 05/06/21 03:00 Active Notify Provider [RC] PRN Care 05/06/21 03:00 Active Peripheral IV Care [RC] Q4HR Care 05/06/21 03:00 Active Vital Signs [RC] PER UNIT ROUTINE Care 05/06/21 02:50 Active Vital Signs [RC] PER UNIT ROUTINE Care 05/06/21 03:00 Active Regular Diet [DIET] Diet 05/06/21 Breakfast Active RAPID PLASMA REAGIN,RPR [CHEM] Routine Lab 05/06/21 03:00 Received Lactated Ringers [Ringers, Lactated] 1,000 ml Med 05/06/21 03:00 Active IV ASDIRECTED Nalbuphine [Nubain] Med 05/06/21 03:00 Active 10 mg IVPUSH Q2H PRN Ondansetron [Zofran] Med 05/06/21 03:00 Active 4 mg IVPUSH Q4H PRN Oxytocin/Lactated Ringers [Pitocin in LR 10 Units/1,000 Med 05/06/21 03:00 Active ML] 10 unit in 1,000 ml IV .CONTINUOUS Sodium Chloride 0.9% [Saline Flush] Med 05/06/21 03:00 Active 10 ml FLUSH ASDIRECTED PRN Electronic Heart Tones Ext w TOCO [WOMSER] Oth 05/06/21 03:00 Ordered Routine Electronic Heart Tones Internal [WOMSER] Per Unit Oth 05/06/21 03:00 Ordered Routine Peripheral IV Insertion Adult [OM.PC] Routine Oth 05/06/21 03:00 Ordered Resuscitation Status Routine Resus Stat 05/06/21 02:50 Ordered Medication Orders Lactated Ringer's (Ringers, Lactated) 1,000 mls @ 100 mls/hr IV ASDIRECTED WILLIAM Last Admin: 05/06/21 04:23 Dose: 100 mls/hr Documented by: Infusion: 05/06/21 04:23 Dose: 100 mls/hr Documented by: Admin: 05/06/21 03:13 Dose: 100 mls/hr Documented by: MARCUS Oxytocin/Lactated Ringer's (Pitocin In Lr 10 Units/1,000 Ml) 10 unit in 1,000 mls @ 500 mls/hr IV .CONTINUOUS WILLIAM Nalbuphine HCl (Nalbuphine 10 Mg/1 Ml Vial) 10 mg IVPUSH Q2H PRN PRN Reason: Pain Last Admin: 05/06/21 03:29 Dose: 10 mg Documented by: RADHA Ondansetron HCl (Ondansetron 4 Mg/2 Ml Sdv) 4 mg IVPUSH Q4H PRN PRN Reason: Nausea/Vomiting Sodium Chloride (Sodium Chloride 0.9% 10 Ml Syringe) 10 ml FLUSH ASDIRECTED PRN PRN Reason: Keep Vein Open Assessment/Plan Comment:: Sarika Moore is a 35-year-old -0-0-1 female at 40 weeks 2 days with active labor Refer to observation for spontaneous labor with advanced cervical dilation and regular contractions. Patient was at 5 cm on presentation. Continuous monitoring Place IV and have Lactated Ringer's at 125 ml/hr May have small amounts of regular diet Activity as tolerated May have epidural as desired Plans to breast-feed after delivery Anticipate vaginal delivery unless otherwise indicated Of note, H&P was written after delivery of the infant with information from prior to delivery Axel Alejo MD 5:49 AM 05/06/2021
--- NOTE | 2021-05-06 05:59 | PCM.DEL ---
L & D Note - General Info Date of Service: 05/06/21 Mother's Due Date: 05/04/21 - Delivery Note Labor: Spontaneous Delivery Outcome: Livebirth Infant Delivery Method: Spontaneous Vaginal Delivery-Single Presentation: Right Occiput Anterior (BONNIE) Nuchal Cord: None Prep: Povidone-Iodine (Betadine Anesthesia Type: None Amniotic Fluid Description: Clear Episiotomy Type: None Laceration: 1st Degree (midline perineal, hemostatid, not repaired) Placenta: Intact, Spontaneous Cord: 3 Vessels Estimated Blood Loss: 150 Resuscitation Needed: No [place]: Bulb Syringe, Stimulated, Warmed, [place] Used, Warmer Used Score 1 min: 8 Score 5 min: 9 Second Stage Interventions: Reports: Pushing Effectively, Pushing, Stirrups/Leg Supports Delivery Comments (Free Text/Narrative):: Stage I: Sarika Moore was admitted for advanced cervical dilation at 5 cm with a bulging bag of water and regular contractions. She was GBS negative. She continued to labor with regular contractions. She had spontaneous rupture of membranes with return of clear fluid. She progressed to complete and pushing. Stage II: On 05/06/2021 she had a normal vaginal delivery of a live male infant at 05:15. Apgars of 8 & 9. Weight of 3350 g (7 lbs 6.2 oz). There was no nuchal cord. Infant was delivered in BONNIE position. The cord was doubly clamped and cut by father the . was placed on mother's abdomen. Stage III: She had a spontaneous delivery of an intact placenta in [place] presentation. Three vessel cord. She was given pitocin and fundal massage. She had a first-degree midline perineal laceration that was hemostatic and not repaired. Mom and baby were stable to recovery. EBL of 150 mL. Axel Alejo MD 5:58 AM 05/06/2021 - General Info Date of Service: 05/06/21 - Patient Data Vitals - Most Recent: Last Vital Signs Temp 36.9 C 05/06/21 02:50 Pulse 69 05/06/21 02:50 Resp 16 05/06/21 02:50 BP 126/75 05/06/21 02:50 Pulse Ox 99 05/06/21 02:50 Weight - Most Recent: 73.346 kg Lab Results Last 24 Hours: Laboratory Results - last 24 hr 05/06/21 05/06/21 Range/Units 03:00 03:00 WBC 16.77 H (3.98-10.04) K/mm3 RBC 4.63 (3.98-5.22) M/mm3 Hgb 13.5 D (11.2-15.7) gm/dl Hct 40.0 (34.1-44.9) % MCV 86.4 (79.4-94.8) fl MCH 29.2 (25.6-32.2) pg MCHC 33.8 (32.2-35.5) g/dl RDW Std Deviation 40.7 (36.4-46.3) fL Plt Count 288 D (182-369) K/mm3 MPV 9.2 L (9.4-12.3) fl Neut % (Auto) 74.6 H (34.0-71.1) % Lymph % (Auto) 19.0 L (19.3-51.7) % [place] % (Auto) 5.3 (4.7-12.5) % Eos % (Auto) 0.4 L (0.7-5.8) Baso % (Auto) 0.2 (0.1-1.2) % Neut # (Auto) 12.52 H (1.56-6.13) K/mm3 Lymph # (Auto) 3.19 (1.18-3.74) K/mm3 [place] # (Auto) 0.89 H (0.24-0.36) K/mm3 Eos # (Auto) 0.06 (0.04-0.36) K/mm3 Baso # (Auto) 0.03 (0.01-0.08) K/mm3 SARS-CoV-2 RNA (ALICIA) Negative (NEGATIVE) Med Orders - Current: Current Medications Lactated Ringer's (Ringers, Lactated) 1,000 mls @ 100 mls/hr IV ASDIRECTED WILLIAM Last Admin: 05/06/21 04:23 Dose: 100 mls/hr Documented by: Oxytocin/Lactated Ringer's (Pitocin In Lr 10 Units/1,000 Ml) 10 unit in 1,000 mls @ 500 mls/hr IV .CONTINUOUS WILLIAM Nalbuphine HCl (Nalbuphine 10 Mg/1 Ml Vial) 10 mg IVPUSH Q2H PRN PRN Reason: Pain Last Admin: 05/06/21 03:29 Dose: 10 mg Documented by: Ondansetron HCl (Ondansetron 4 Mg/2 Ml Sdv) 4 mg IVPUSH Q4H PRN PRN Reason: Nausea/Vomiting Sodium Chloride (Sodium Chloride 0.9% 10 Ml Syringe) 10 ml FLUSH ASDIRECTED PRN PRN Reason: Keep Vein Open Discontinued Medications Lidocaine HCl (Lidocaine 1% 50 Ml Mdv) Confirm Administered Dose 50 ml .ROUTE .[employer] Ratings ONE Stop: 05/06/21 04:58 - Problem List & Annotations (1) 40 weeks gestation of SNOMED Code(s): 29539956 Code(s): Z3A.40 - 40 WEEKS GESTATION OF Status: Acute Current Visit: Yes (2) Vaginal delivery SNOMED Code(s): 792343651 Code(s): O80 - ENCOUNTER FOR FULL-TERM UNCOMPLICATED DELIVERY Status: Acute Current Visit: Yes (3) First degree perineal laceration during delivery SNOMED Code(s): 010942335 Code(s): O70.0 - FIRST DEGREE PERINEAL LACERATION DURING DELIVERY Status: Acute Current Visit: Yes - Problem List Review Problem List Initiated/Reviewed/Updated: Yes - My Orders Last 24 Hours: My Active Orders 05/06/21 02:50 Patient Status [ADT] Routine Non Stress Test [RC] PER UNIT ROUTINE Vital Signs [RC] PER UNIT ROUTINE Resuscitation Status Routine 05/06/21 03:00 Patient Status [ADT] Routine Activity as Tolerated [RC] PFP Communication Order [RC] ASDIRECTED Heart Tones [RC] ASDIRECTED Non Stress Test [RC] PER UNIT ROUTINE Notify Provider [RC] PFP Notify Provider [RC] PRN Peripheral IV Care [RC] Q4HR Vital Signs [RC] PER UNIT ROUTINE RAPID PLASMA REAGIN,RPR [CHEM] Routine Lactated Ringers [Ringers, Lactated] 1,000 ml IV ASDIRECTED Nalbuphine [Nubain] 10 mg IVPUSH Q2H PRN Ondansetron [Zofran] 4 mg IVPUSH Q4H PRN Oxytocin/Lactated Ringers [Pitocin in LR 10 Units/1,000 ML] 10 unit in 1,000 ml IV .CONTINUOUS Sodium Chloride 0.9% [Saline Flush] 10 ml FLUSH ASDIRECTED PRN Electronic Heart Tones Ext w TOCO [WOMSER] Routine Electronic Heart Tones Internal [WOMSER] Per Unit Routine Peripheral IV Insertion Adult [OM.PC] Routine 05/06/21 05:33 Patient Status Manage Transfer [TRANSFER] Routine 05/06/21 Breakfast Regular Diet [DIET] - Plan Plan:: Sarika Moore is a 35-year-old G2 now P2-0-0-2 female status post , PPD #0 Admit to inpatient following normal spontaneous vaginal delivery Continue Pitocin per unit protocol following delivery of placenta and lactated Ringer's until tolerating regular diet Regular diet Vitals per unit routine Ibuprofen and Tylenol for pain control Assist with breast-feeding as needed Continue to monitor lochia Anticipate discharge home on day #1 Axel Alejo MD 5:58 AM 05/06/2021
[2021-05-06] MEDS ORDERED: Witch Hazel Medicated Pads 40/Jar TOP PRN (06:14)
[2021-05-06] MEDS ORDERED: Docusate Sodium 100 MG Cap PO PRN (06:14)
[2021-05-06] MEDS ORDERED: Acetaminophen 325 MG Tab PO PRN (06:14)
[2021-05-06] MEDS ORDERED: Benzocaine/Menthol 20%-0.5% Spray 56 GM Canister TOP PRN (06:14)
[2021-05-06] MEDS ORDERED: Ibuprofen 600 MG Tab PO PRN (06:14)
[2021-05-06] MEDS ORDERED: Magnesium Hydroxide 400 MG/5 ML Susp 30 ML Cup PO PRN (06:14)
[2021-05-06] MEDS ORDERED: Hydrocortisone Acetate 25 MG Supp RECTAL PRN (06:14)
[2021-05-06] MEDS ORDERED: Prenatal Multivitamin with Calcium/Folic Acid/Iron Tab PO SCH (09:00)
--- NOTE | 2021-05-07 08:09 | PCM.DCSUM1 ---
Discharge Summary - Hospital Course Diagnosis: Stroke: No - Discharge Data Discharge Date: 05/07/21 Discharge Disposition: Home, Self-Care 01 Condition: Good - Referral to Home Health Primary Care Physician: Mariela Gottlieb MD - Patient Summary/Data Hospital Course: Stage I: Sarika Moore was admitted for advanced cervical dilation at 5 cm with a bulging bag of water and regular contractions. She was GBS negative. She continued to labor with regular contractions. She had spontaneous rupture of membranes with return of clear fluid. She progressed to complete and pushing. Stage II: On 05/06/2021 she had a normal vaginal delivery of a live male infant at 05:15. Apgars of 8 & 9. Weight of 3350 g (7 lbs 6.2 oz). There was no nuchal cord. Infant was delivered in BONNIE position. The cord was doubly clamped and cut by father the infant. Infant was placed on mother's abdomen. Stage III: She had a spontaneous delivery of an intact placenta in [place] presentation. Three vessel cord. She was given pitocin and fundal massage. She had a first-degree midline perineal laceration that was hemostatic and not repaired. Mom and baby were stable to recovery. EBL of 150 mL. - Patient Instructions Diet: Usual Diet as Tolerated Activity: No Strenuous Activities Driving: May Drive Today Notify Provider of: Fever, Increased Pain, Swelling and Redness, Drainage, Nausea and/or Vomiting - Discharge Plan *PRESCRIPTION DRUG MONITORING PROGRAM REVIEWED*: No *COPY OF PRESCRIPTION DRUG MONITORING REPORT IN PATIENT MARCIAL: No Home Medications: Home Meds Vit 10/Iron/Folic/Dha [Vitafol-OB + DHA] 1 each PO DAILY 12/25/18 [History] Referrals: Mariela Gottlieb MD [Primary Care Provider] - - Discharge Summary/Plan Comment DC Time >30 min.: No - Patient Data Vitals - Most Recent: Last Vital Signs Temp 36.5 C 05/07/21 03:26 Pulse 59 L 05/07/21 03:26 Resp 15 05/07/21 03:26 BP 109/65 05/07/21 03:26 Pulse Ox 96 05/07/21 03:26 Weight - Most Recent: 73.346 kg I&O - Last 24 hours: Intake & Output 05/06/21 05/07/2121 22:59 06:59 14:59 Intake Total 0 Balance 0 Lab Results - Last 24 hrs: Laboratory Results - last 24 hr 05/06/21 Range/Units 03:00 RPR Non-reactive (NONREACTIVE) Med Orders - Current: Current Medications Acetaminophen (Acetaminophen 325 Mg Tab) 650 mg PO Q6H PRN PRN Reason: mild pain or fever Benzocaine/Menthol (Benzocaine/Menthol 20%-0.5% [place] 56 Gm Canister) 0 gm TOP ASDIRECTED PRN PRN Reason: Perineal Comfort Measure Docusate Sodium (Docusate Sodium 100 Mg Cap) 100 mg PO BID PRN PRN Reason: Constipation Last Admin: 05/06/21 21:09 Dose: 100 mg Documented by: Hydrocortisone Acetate (Hydrocortisone Acetate 25 Mg Supp) 25 mg RECTAL BID PRN PRN Reason: Hemorrhoid pain Oxytocin/Lactated Ringer's (Pitocin In Lr 10 Units/1,000 Ml) 10 unit in 1,000 mls @ 100 mls/hr IV TITRATE WILLIAM; Protocol Ibuprofen (Ibuprofen 600 Mg Tab) 600 mg PO Q6H PRN PRN Reason: Mild pain or fever Last Admin: 05/06/21 21:08 Dose: 600 mg Documented by: Magnesium Hydroxide (Magnesium Hydroxide 400 Mg/5 Ml Susp 30 Ml Cup) 30 ml PO BEDTIME PRN PRN Reason: Constipation Prenat Multivit/Family Medicine Chair/Iron/Folic Ac ( Multivitamin With Calcium/Folic Acid/Iron Tab) 1 each PO DAILY WILLIAM Last Admin: 05/07/21 00:34 Dose: Not Given Documented by: Suzy Marc (Suzy Marc Medicated Pads 40/Jar) 1 pad TOP ASDIRECTED PRN PRN Reason: Perineal Comfort Measure Discontinued Medications Lactated Ringer's (Ringers, Lactated) 1,000 mls @ 100 mls/hr IV ASDIRECTED WILLIAM Last Admin: 05/06/21 04:23 Dose: 100 mls/hr Documented by: Oxytocin/Lactated Ringer's (Pitocin In Lr 10 Units/1,000 Ml) 10 unit in 1,000 mls @ 500 mls/hr IV .CONTINUOUS WILLIAM Last Admin: 05/06/21 05:16 Dose: 500 mls/hr Documented by: Lidocaine HCl (Lidocaine 1% 50 Ml Mdv) Confirm Administered Dose 50 ml .ROUTE .[employer] ONE Stop: 05/06/21 04:58 Nalbuphine HCl (Nalbuphine 10 Mg/1 Ml Vial) 10 mg IVPUSH Q2H PRN PRN Reason: Pain Last Admin: 05/06/21 03:29 Dose: 10 mg Documented by: Ondansetron HCl (Ondansetron 4 Mg/2 Ml Sdv) 4 mg IVPUSH Q4H PRN PRN Reason: Nausea/Vomiting Sodium Chloride (Sodium Chloride 0.9% 10 Ml Syringe) 10 ml FLUSH ASDIRECTED PRN PRN Reason: Keep Vein Open
== END 2021-05-07 11:55 | disposition home or self-care (01) | DRG 560 ==
LOC: JD.OBCHECK 02:42 → JD.OB 02:45 → JD.OBCHECK 02:59 → JD.OB 03:00 → OBSVTOIN 05:15 → JD.OB 05:16
PROVIDERS: ADMIT Obstetrics & Gynecology; ATTEND Obstetrics & Gynecology
PROC: 10E0XZZ Delivery of Products of Conception, External Approach (ICD-10-PCS; principal; 2021-05-06)
DX: O48.0 Post-term pregnancy (principal); Z37.0 Single live birth; Z20.822 Contact with and (suspected) exposure to COVID-19; O70.0 First degree perineal laceration during delivery; Z3A.40 40 weeks gestation of pregnancy
CPT/HCPCS: 36415; 59025; 59409; 85025; 86592; A9270-GY; J2300; J2590; J7120; U0002